=== PATIENT | female | born 1980 | race Hispanic/Latino ===

== ENCOUNTER 2019-08-08 15:39 | Outpatient (CLI) | payer OTHER ==
--- NOTE | 2019-08-09 09:19 | Ultrasound Report ---
TRANSABDOMINAL PELVIC AND TRANSVAGINAL ULTRASOUND HISTORY: DUB COMPARISON: None. TECHNIQUE: Routine transabdominal and transvaginal pelvic ultrasound performed. FINDINGS: TRANSABDOMINAL PELVIC ULTRASOUND: Uterus: Enlarged. The uterus is stretched by a distended urinary bladder and measures 15.1 x 4.9 x 7. 3 cm. No other measurable fibroids. Endometrium: Not imaged Right Ovary: Not well seen. . Left Ovary: Not well seen. Additional findings: Transvaginal exam was performed for better delineation of the endometrium and ov eliane. TRANSVAGINAL PELVIC ULTRASOUND: Uterus: Enlarged with heterogeneous myometrium consistent with diffuse small fibroids. An anterior fu ndal subserosal fibroid measures 1.2 cm. Endometrium: Normal thickness measuring 11.0 mm. Right Ovary: Normal with multiple small follicles. 4.7 x 2.4 x 4.8 cm. Left Ovary: Normal with multiple small follicles. 4.3 x 2.5 x 3.7 cm. Dominant follicle measures 1.4 cm. Additional findings: No mass or free fluid.. IMPRESSION: 1. Enlarged uterus with small uterine leiomyomata. 2. Normal endometrium and normal ovaries. Signer Name: Marck Moore MD Signed: 08/09/2019 9:14 AM Workstation Name: [id number]
== END 2019-08-08 15:40 | disposition home or self-care (01) ==
LOC: SPVWC 15:39
PROVIDERS: ATTEND Advanced Practice Midwife
DX: D25.2 Subserosal leiomyoma of uterus (principal)
CPT/HCPCS: 76830; 76856

== ENCOUNTER 2019-10-18 09:00 | Inpatient (IN) | payer OTHER ==
[2019-10-14 11:24] LABS: Basophils # (Auto) 0.1 K/mm3 (0.0-0.1); Basophils % (Auto) 0.8 % (0.0-1.8); Eosinophils # (Auto) 0.1 K/mm3 (0.0-0.4); Eosinophils % (Auto) 1.2 % (0.0-4.3); Hemoglobin 10.7 gm/dl (10.1-14.3); Lymphocytes # (Auto) 1.8 K/mm3 (1.2-5.4); Lymphocytes % (Auto) 27.4 % (13.4-35.0); Mean Corpuscular HGB Conc 32 % (30-34); Mean Corpuscular Volume 73 fl (79-97); Monocytes # (Auto) 0.5 K/mm3 (0.0-0.8); Monocytes % (Auto) 8.4 % (0.0-7.3); Platelet Count 252 K/mm3 (140-440); Red Blood Count 4.64 M/mm3 (3.65-5.03); Red Cell Distribution Width 21.9 % (13.2-15.2)
[2019-10-14 11:40] LABS: BUN/Creatinine Ratio 20; Blood Urea Nitrogen 10 mg/dL (7-17); Calcium 8.7 mg/dL (8.4-10.2); Hemolysis Index 8
--- NOTE | 2019-10-14 16:58 | Anesthesia Consultation ---
Anesthesia Consult and Med Hx Date of service: 10/14/19 - Airway Anesthetic Teeth Evaluation: Good ROM Head & Neck: Adequate Mental/Hyoid Distance: Adequate Mallampati Class: Class II Intubation Access Assessment: Good - Pulmonary Exam CTA: Yes - Cardiac Exam Cardiac Exam: RRR - Pre-Operative Health Status ASA Pre-Surgery Classification: ASA2 - Pulmonary Hx Smoking: Yes (1/2PPD; SINCE AGE 10; QUIT AT AGE 23 AND AGAIN 2 WKS AGO) Hx Sleep Apnea: Yes - Cardiovascular System Hx Hypertension: Yes (2014; ON/OFF MEDS;DIURECTIC ONLY CURRENTLY) - Central Nervous System Hx Psychiatric Problems: Yes - Hematic Hx Anemia: Yes (HGB 6.2 PUT ON FERRALET 90) - Other Systems Hx Alcohol Use: Yes (VERY RARE) Hx Substance Use: No Hx Obesity: Yes
[~2019-10-18 09:00] MED LIST: CELECOXIB 200 MG CAP PO NR; GABAPENTIN 300 MG CAP PO NR; LACTATED RINGERS 1,000 ML IV SCH; MIDAZOLAM 2 MG/2 ML INJ IV NR; fentaNYL 100 MCG/2 ML INJ IV SCH
--- NOTE | 2019-10-18 09:33 | Anesthesia Day of Surgery ---
Anesthesia Day of Surgery - Day of Surgery Patient Examined: Yes Patient H&P Reviewed: Yes Patient is NPO: Yes
[2019-10-18] MEDS ORDERED: BUPIVACAINE-EPINEPHRINE/PF 0.25%-1:200,000 (30 ML) VIAL INFILTRATI ONE (09:45)
[2019-10-18] MEDS ORDERED: dexAMETHasone 4 MG/ML VIAL ONE (09:45)
--- NOTE | 2019-10-18 09:45 | History and Physical Report ---
History of Present Illness Date of examination: 10/18/19 Date of admission: 10/18/19 09:00 Chief complaint: Menorrhagia History of present illness: Pt is a 39yo WF LMP 10/10/19 presents for surgical evaluation and treatment of menorrhagia and uterine fibroids. She complains of pelvic pain and heavy vaginal bleeding. Pelvic u/s showed the uterus 15.1 x 4.9 x 7.3cm with a small fundal fibroid. She desires ovarian conservation and now presents for a Total Abdominal Hysterectomy with Bilateral Salpingectomy. Past History Past Medical History: hypertension (on HCTZ), diabetes (on Metformin), other (PCOS; Depression) Past Surgical History: UPHOLSTERY BUNDLER/uterine surgery (Right salpingectomy for ectopic ), section (x3), D&C UPHOLSTERY BUNDLER History: abnormal PAP smear, fibroids Family/Genetic History: cancer Social history: no significant social history, Medications and Allergies Allergies Allergy/AdvReac Type Severity Reaction Status Date / Time adhesive Allergy Redness Verified 10/12/19 17:52 and Swelling Latex, Natural Rubber Allergy Redness Verified 10/12/19 17:52 and Swelling Home Medications Medication Instructions Recorded Confirmed Last Taken Type Cetirizine HCl [Zyrtec 10mg tab] 10 mg PO DAILY 10/12/19 10/12/19 Unknown History Ergocalciferol [Vitamin D2] 1 cap PO QWEEK 10/12/19 10/18/19 10/11/19 09:00 History Iron Carb,Gl/FA/B12/C/Docusate 1 each PO DAILY 10/12/19 10/12/19 Unknown History [Ferralet 90 Dual-Iron Tablet] Sertraline [Zoloft] 100 mg PO QDAY 10/12/19 10/18/19 10/17/19 08:00 History hydroCHLOROthiazide [HCTZ] 25 mg PO QDAY 10/12/19 10/18/19 10/17/19 08:00 History metFORMIN XR [Glucophage XR] 500 mg PO QDAY 10/12/19 10/18/19 10/17/19 08:00 History Active Meds: Active Medications Celecoxib (Celebrex) 200 mg PO PREOP NR Stop: 10/18/19 23:00 Fentanyl (Sublimaze) 100 mcg IV ONCE BELLE Stop: 10/18/19 23:00 Gabapentin (Gabapentin) 300 mg PO PREOP NR Stop: 10/18/19 23:00 Hydromorphone HCl (Dilaudid) 0.5 mg IV Q10MIN PRN PRN Reason: Pain , Severe (7-10) Stop: 10/18/19 16:00 Lactated Ringer's (Lactated Ringers) 1,000 mls @ 100 mls/hr IV DIRECT BELLE Midazolam HCl (Versed) 2 mg IV PREOP NR Stop: 10/18/19 23:00 Review of Systems All systems: negative - Vital Signs Vital signs: Vital Signs Temp Pulse Resp BP Pulse Ox 97.6 F 83 20 147/86 98 10/14/19 10:25 10/14/19 10:25 10/14/19 10:25 10/14/19 10:25 10/14/19 10:25 Temp Pulse Resp BP Pulse Ox 97.6 F 83 20 147/86 98 10/14/19 10:25 10/14/19 10:25 10/14/19 10:25 10/14/19 10:25 10/14/19 10:25 - Physical Exam Breasts: Positive: deferred Cardiovascular: Regular rate Lungs: Positive: Clear to auscultation Abdomen: Positive: normal appearance Genitourinary (Female): Positive: normal external genitalia Vagina: Positive: normal moisture Uterus: Positive: enlarged Extremities: Positive: normal Results Result Diagrams: 10/14/19 10:35 10/14/19 10:35 All other labs normal. Ultrasound: report reviewed Assessment and Plan - Patient Problems (1) Uterine fibroid Onset Date: 10/18/19 Current Visit: Yes Status: Acute Qualifiers: Uterine leiomyoma location: intramural and submucous Qualified Code(s): D25.1 - Intramural leiomyoma of uterus; D25.0 - Submucous leiomyoma of uterus Plan to address problem: A: Symptomatic uterine fibroids Menorrhagia P: Admit for a Total Abdominal Hysterectomy with Bilateral Salpingectomy (2) Menorrhagia with irregular cycle Onset Date: 10/18/19 Current Visit: Yes Status: Chronic
[2019-10-18] MEDS ORDERED: cloNIDine/PF 1,000 MCG/10 ML VIAL EP ONE (09:46)
[2019-10-18] MEDS ORDERED: HYDROmorphone 1 MG/1 ML INJ IV PRN (10:00)
[2019-10-18] MEDS ORDERED: LACTATED RINGERS 1,000 ML IV SCH (10:00)
[2019-10-18] MEDS ORDERED: fentaNYL 100 MCG/2 ML INJ IV ONE (10:02)
[2019-10-18] MEDS ORDERED: GABAPENTIN 300 MG CAP PO NR (11:00)
[2019-10-18] MEDS ORDERED: MIDAZOLAM 2 MG/2 ML INJ IV NR (11:00)
[2019-10-18] MEDS ORDERED: CELECOXIB 200 MG CAP PO NR (11:00)
[2019-10-18] MEDS ORDERED: METHYLENE BLUE 50 MG/10 ML AMP ONE (11:03)
[2019-10-18] MEDS ORDERED: PROPOFOL 200 MG/20 ML VIAL IV ONE (11:04)
[2019-10-18] MEDS ORDERED: HYDROmorphone 1 MG/1 ML INJ ONE (11:04)
[2019-10-18] MEDS ORDERED: LIDOCAINE MPF (2%) 20 MG/1 ML VIAL 5 ML ONE (11:05)
[2019-10-18] MEDS ORDERED: ROCURONIUM 50 MG/5 ML INJ IV ONE ×2 (11:06→12:02)
[2019-10-18] MEDS ORDERED: SODIUM CHLORIDE 0.9% IRR 1,000 ML BOTTLE IR ONE (11:20)
[2019-10-18] MEDS ORDERED: CITRIC ACID-SOD CITRATE 500 ML IV ONE (11:57)
[2019-10-18] MEDS ORDERED: KETOROLAC 30 MG/1 ML INJ ONE (12:00)
[2019-10-18] MEDS ORDERED: diphenhydrAMINE 50 MG/ML VIAL ONE (12:02)
[2019-10-18] MEDS ORDERED: LACTATED RINGERS 1,000 ML ONE (12:03)
[2019-10-18] MEDS ORDERED: dexAMETHasone 20 MG/5 ML VIAL ONE (12:04)
[2019-10-18] MEDS ORDERED: ONDANSETRON 4 MG/2 ML INJ ONE (12:05)
[2019-10-18] MEDS ORDERED: GLYCOPYRROLATE 0.4 MG/2 ML INJ ONE (13:09)
[2019-10-18] MEDS ORDERED: NEOSTIGMINE 10MG/10 ML INJ MDV ONE (13:09)
--- NOTE | 2019-10-18 13:31 | Operative Report ---
Operative Report Operative Report: Date of procedure: 10/18/2019 Pre-operative diagnosis: 1. Symptomatic uterine fibroids 2. Menorrhagia Post-operative diagnosis: Same with Extensive lower uterine segment adhesions and bowel adhesions Procedure name(s): 1. Total abdominal hysterectomy 2. Left salpingectomy 3. Lysis of extensive adhesions. Surgeon: Francesco Allan MD Commercial Assistant: Jaclyn Khoury CSA Anesthesia: KENNEDY Block followed by general endotracheal intubation EBL: 200 mL's Findings: A 14 -16 week size uterus with a small fibroid. Extensive lower uterine segment adhesions and bowel adhesions. Normal ovaries bilaterally. Absent right fallopian tube, and normal left fallopian tube. Procedure: After the patient was first correctly identified and after KENNEDY block and general anesthesia was administered she was prepped and draped in usual in the usual sterile fashion and placed in the dorsolithotomy position. The skin knife was used to make a transverse skin incision through the previous skin scars. The incision was extended down to the layer of the fascia which was nicked in the midline and extended laterally using Bovie cautery. The rectus muscles were dissected off the rectus fascia both superiorly and inferiorly, the rectus bellies in the midline and the peritoneum was entered under direct visualization. Exploration of the pelvic organs found the uterus to be enlarged with extensive lower uterine segment adhesions and omental adhesions to the anterior abdominal wall. The right fallopian tube was absent, and the left fallopian tube was normal. The ovaries were normal bilaterally. Next the bowels were packed back and the round ligaments were grasped, cauterized and cut using the Enseal device. The utero-ovarian ligament was clamped, cauterized and cut, thus freeing the right ovary from the right uterine sidewall. The same procedure was performed on the left. The left round ligament was clamped, cauterized and cut using the Enseal device, and the left utero-ovarian ligament was clamped, cauterized and cut thus freeing the left ovary and the left fallopian tube from the left uterine sidewall. The uterine vessels were then skeletonized bilaterally, and the bladder flap was taken down anteriorly. There was extensive lower uterine segment adhesions which were taken down using both sharp and blunt dissections. The uterine vessels were then doubly clamped cut and suture ligated bilaterally, and the cardinal ligaments were sequentially clamped cut and suture ligated down to the level of the uterosacral ligaments. The cervix was then amputated from the vaginal cuff and the specimen was handed off the surgical field. The vaginal cuff was then made hemostatic using several sutures of 0 Vicryl suture in a [id number] configuration. After excellent hemostasis was assured copious amounts of irrigation was then performed. The Tisseel sealant was then sprayed across the vaginal cuff and the superior pedicles bilaterally and after excellent hemostasis was assured the procedure was considered complete. All instruments were removed from the abdomen, and the peritoneum was closed using 0 Vicryl suture in a running interlocking fashion and the rectus muscles were also loosely re-approximated using 0 Vicryl suture in a [id number] configuration. The fascia was then re-approximated using #1 Vicryl suture in a running interlocking fashion, the subcutaneous layer made hemostatic using Bovie cautery and the skin edges re-approximated using 4-0 Vicryl suture in a sub-cuticular fashion. Patient tolerated the procedure well was transported to recovery room in stable condition.
[2019-10-18] MEDS ORDERED: MAGNESIUM HYDROXIDE (MOM) ORAL LIQD UDC PO PRN (13:32)
[2019-10-18] MEDS ORDERED: PROMETHAZINE 25 MG RECT SUPP PR PRN (13:32)
[2019-10-18] MEDS ORDERED: ONDANSETRON 4 MG/2 ML INJ IV PRN (13:32)
[2019-10-18] MEDS ORDERED: HYDROcodone/ACETAMINOPHEN 5-325 MG TAB PO PRN (13:32)
[2019-10-18] MEDS ORDERED: DEXTROSE 50% IN WATER (25GM) 50 ML SYRINGE IV PRN (13:32)
[2019-10-18] MEDS ORDERED: ACETAMINOPHEN 325 MG TAB PO PRN (13:32)
[2019-10-18] MEDS ORDERED: D5W/LACTATED RINGERS 1,000 ML IV SCH (14:00)
--- NOTE | 2019-10-18 15:30 | Post Anesthesia Evaluation ---
- Post Anesthesia Evaluation Patient Participated: Yes Airway Patent: Yes Stable Respiratory Function: Yes Nausea/Vomiting: No Temp > 96.8F: Yes Pain Manageable: Yes Adequeate Hydration: Yes Anesthesia Complications: No
[2019-10-18] MEDS: oxyCODONE /ACETAMINOPHEN 5-325MG TAB PO PRN (17:28)
[2019-10-18] MEDS ORDERED: PHENOL 1.4% 177 ML BOTTLE MM PRN (20:23)
[2019-10-18] MEDS: DOCUSATE SODIUM 100 MG CAP PO SCH (21:21)
[2019-10-18] MEDS: KETOROLAC 30 MG/1 ML INJ IV SCH (21:21)
[2019-10-18] MEDS: ceFAZolin/NS 1 GM/50 ML 1 GM/50 ML BAG IV SCH (21:54)
[2019-10-18] MEDS: INSULIN REGULAR, HUMAN 100 UNITS/1 ML SUB-Q SCH (21:54)
[2019-10-18] MEDS: AZITHROMYCIN 250 MG TAB PO SCH (21:55)
[2019-10-19] MEDS: KETOROLAC 30 MG/1 ML INJ IV SCH ×3 (05:08→20:45)
[2019-10-19] MEDS: ceFAZolin/NS 1 GM/50 ML 1 GM/50 ML BAG IV SCH (05:09)
[2019-10-19 05:19] LABS: Hemoglobin 7.1 gm/dl (10.1-14.3)
[2019-10-19 05:56] LABS: BUN/Creatinine Ratio 25; Blood Urea Nitrogen 15 mg/dL (7-17); Calcium 7.9 mg/dL (8.4-10.2); Hemolysis Index 5
[2019-10-19] MEDS: oxyCODONE /ACETAMINOPHEN 5-325MG TAB PO PRN ×2 (07:21→18:20)
--- NOTE | 2019-10-19 08:26 | Progress Note ---
Assessment and Plan - Patient Problems (1) Uterine fibroid Onset Date: 10/18/19 Current Visit: Yes Status: Resolved Qualifiers: Uterine leiomyoma location: intramural and submucous Qualified Code(s): D25.1 - Intramural leiomyoma of uterus; D25.0 - Submucous leiomyoma of uterus (2) Menorrhagia with irregular cycle Onset Date: 10/18/19 Current Visit: Yes Status: Resolved (3) Status post total abdominal hysterectomy Onset Date: 10/19/19 Current Visit: Yes Status: Resolved Plan to address problem: A: S/P KEMAL with Left salpingectomy - POD #1 Doing well Asymptomatic anemia - stable P: Continue RPOC Anticipate discharge in 24-48hrs (4) Acute blood loss anemia Onset Date: 10/19/19 Current Visit: Yes Status: Resolved Subjective - Subjective Date of service: 10/19/19 Principal diagnosis: s/p KEMAL - POD #1 Interval history: Pt is s/p a Total Abdominal Hysterectomy with Left Salpingectomy, and doing well. She is tolerating a liquid diet without nausea or vomiting. Patient reports: appetite normal, voiding normally, pain well controlled, ambulating normally, no dizzy ambulation, no flatus, no nauseated Objective - Vital Signs Latest vital signs: Vital Signs Temp Pulse Pulse Resp BP BP Pulse Ox 10/19/19 07:21 18 10/19/19 04:17 110/64 10/19/19 00:40 98.3 F 83 18 100/52 97 10/18/19 20:28 97.3 F L 89 18 102/52 96 10/18/19 20:00 60 16 10/18/19 16:30 97.5 F L 93 H 20 91/52 10/18/19 14:45 98.5 F 96 H 20 114/79 97 10/18/19 14:14 16 10/18/19 14:09 98.4 F 88 16 132/74 97 10/18/19 13:54 91 H 14 130/76 97 10/18/19 13:49 99 H 17 123/74 100 10/18/19 13:44 93 H 19 134/73 100 10/18/19 13:39 98.7 F 86 18 131/65 100 10/18/19 11:33 18 10/18/19 10:50 80 22 116/54 98 10/18/19 10:45 20 131/62 98 10/18/19 10:40 85 15 124/71 98 10/18/19 10:35 71 15 149/86 99 10/18/19 10:33 18 10/18/19 10:30 76 13 150/79 100 10/18/19 10:20 18 10/18/19 09:09 97.6 F 83 20 147/86 98 Intake and Output 10/18/19 10/19/19 10/19/19 22:59 06:59 14:59 Intake Total 140 Output Total 400 600 Balance -260 -600 Intake: IV 50 ANCEF/NS 1 GM/50 ML 1 gm 50 In 50 ml @ 100 mls/hr IV Q8H [facility] Rx#:[id number] Oral 90 Output: Urine 400 600 Indwelling Catheter 400 600 Other: Total, Intake Amount 90 Total, Output Amount 400 200 Voiding Method Indwelling Catheter # Voids Indwelling Catheter 3 - Exam Breasts: Present: deferred Abdomen: Present: normal appearance, soft Extremities: Present: normal Incision: Present: normal, dry, intact - Labs Labs: Abnormal lab results 10/18/19 10/18/19 10/19/19 Range/Units 16:58 21:56 04:51 Hgb 7.1 L (10.1-14.3) gm/dl Hct 23.0 L (30.3-42.9) % Sodium (137-145) mmol/L Creatinine (0.7-1.2) mg/dL Glucose (65-100) mg/dL POC Glucose 203 H 204 H (70-105) Calcium (8.4-10.2) mg/dL 10/19/19 Range/Units 04:51 Hgb (10.1-14.3) gm/dl Hct (30.3-42.9) % Sodium 136 L (137-145) mmol/L Creatinine 0.6 L (0.7-1.2) mg/dL Glucose 146 H (65-100) mg/dL POC Glucose (70-105) Calcium 7.9 L (8.4-10.2) mg/dL Laboratory Tests 10/14/19 10/14/19 10/14/19 10:35 10:35 10:35 WBC 6.5 RBC 4.64 Hgb 10.7 Hct 34.0 MCV 73 L MCH 23 L MCHC 32 RDW 21.9 H Plt Count 252 Lymph % (Auto) 27.4 [place] % (Auto) 8.4 H Eos % (Auto) 1.2 Baso % (Auto) 0.8 Lymph # 1.8 [place] # 0.5 Eos # 0.1 Baso # 0.1 Seg Neutrophils % 62.2 Seg Neutrophils # 4.0 Sodium 138 Potassium 3.8 Chloride 102.0 Carbon Dioxide 22 Anion Gap 18 BUN 10 Creatinine 0.5 L Estimated GFR > 60 BUN/Creatinine Ratio 20 Glucose 88 POC Glucose Calcium 8.7 HCG, Qual Negative Blood Type Antibody Screen 10/18/19 10/18/19 10/18/19 10:06 16:58 21:56 WBC RBC Hgb Hct MCV MCH MCHC RDW Plt Count Lymph % (Auto) [place] % (Auto) Eos % (Auto) Baso % (Auto) Lymph # [place] # Eos # Baso # Seg Neutrophils % Seg Neutrophils # Sodium Potassium Chloride Carbon Dioxide Anion Gap BUN Creatinine Estimated GFR BUN/Creatinine Ratio Glucose POC Glucose 203 H 204 H Calcium HCG, Qual Blood Type A POSITIVE Antibody Screen Negative 10/19/19 10/19/19 04:51 04:51 WBC RBC Hgb 7.1 L Hct 23.0 L MCV MCH MCHC RDW Plt Count Lymph % (Auto) [place] % (Auto) Eos % (Auto) Baso % (Auto) Lymph # [place] # Eos # Baso # Seg Neutrophils % Seg Neutrophils # Sodium 136 L Potassium 4.2 Chloride 99.6 Carbon Dioxide 23 Anion Gap 18 BUN 15 Creatinine 0.6 L Estimated GFR > 60 BUN/Creatinine Ratio 25 Glucose 146 H POC Glucose Calcium 7.9 L HCG, Qual Blood Type Antibody Screen
[2019-10-19] MEDS ORDERED: hydroCHLOROthiazide 25 MG TAB PO SCH (10:00)
[2019-10-19] MEDS: INSULIN REGULAR, HUMAN 100 UNITS/1 ML SUB-Q SCH ×3 (12:02→21:46)
[2019-10-19] MEDS: metFORMIN 500 MG TAB PO SCH ×2 (12:03→18:19)
[2019-10-19] MEDS: DOCUSATE SODIUM 100 MG CAP PO SCH ×2 (12:04→21:33)
--- NOTE | 2019-10-19 15:57 | Discharge Summary ---
Providers - Providers Date of Admission: 10/18/19 09:00 Date of discharge: 10/20/19 Attending physician: LOLLY FORD Primary care physician: DINESH ROSALES [facility] Reason for admission: other (Symptomatic uterine fibroids; Menorrhagia) Procedure: other (KEMAL with Left salpingectomy) Episiotomy: none Laceration: none Incision: normal, dry, intact Other procedures: none complications: none Discharge diagnosis: other (s/p KEMAL) Hospital course: Pt is a 39yo WF LMP 10/10/19 who presented for surgical evaluation and treatment of menorrhagia and uterine fibroids. She complained of pelvic pain and heavy prolonged vaginal bleeding. Pelvic u/s showed the uterus 15.1 x 4.9 x 7.3cm with a small fundal fibroid. She underwent an uncomplicated Total Abdominal Hysterectomy with Left Salpingectomy, and post operative course was uneventful. By POD #1 she was tolerating a reg diet without nausea or vomiting, ambulating and voiding without difficulty. She will therefore be discharged to home tomorrow if she remains in stable condition. She will follow up with me in the office in 2 weeks. Condition at discharge: Good Disposition: DC-01 TO HOME OR SELFCARE - Discharge Diagnoses (1) Uterine fibroid Status: Resolved Qualifiers: Uterine leiomyoma location: intramural and submucous Qualified Code(s): D25.1 - Intramural leiomyoma of uterus; D25.0 - Submucous leiomyoma of uterus (2) Menorrhagia with irregular cycle Status: Resolved (3) Status post total abdominal hysterectomy Status: Resolved (4) Acute blood loss anemia Status: Resolved Plan - Discharge Medications Prescriptions: Ferrous Sulfate [Feosol 325 MG tab] 325 mg PO BID #60 tablet Ibuprofen [Motrin] 800 mg PO Q8HR PRN #30 tablet PRN Reason: Pain, Mild (1-3) oxyCODONE /ACETAMINOPHEN [Percocet 5/325 mg] 1 tab PO Q6H PRN #30 tablet PRN Reason: Pain, Moderate (4-6) Azithromycin [Zithromax TAB] 250 mg PO QDAY #5 tablet - Provider Discharge Summary Activity: routine, no sex for 6 weeks, no heavy lifting 4 weeks, no strenuous exercise Diet: routine Instructions: routine Additional instructions: [] Smoking cessation referral if applicable(refer to patient education folder for contact #) [] Refer to [employer] Booklet Call your doctor immediately for: * Fever > 100.5 * Heavy vaginal bleeding ( >1 pad per hour) * Severe persistent headache * Shortness of breath * Reddened, hot, painful area to leg or breast * Drainage or odor from incision. * Keep incision clean and dry at all times and follow doctor's instructions regarding bathing/showering - Follow up plan Follow up: DINESH COOPER [Primary Care Provider] - 14 Days LOLLY FORD MD [Staff Physician] - 14 Days
[2019-10-19] MEDS: SERTRALINE 100 MG TAB PO SCH (18:19)
[2019-10-19] MEDS: AZITHROMYCIN 250 MG TAB PO SCH (18:19)
[2019-10-20] MEDS: oxyCODONE /ACETAMINOPHEN 5-325MG TAB PO PRN ×2 (01:05→10:15)
[2019-10-20] MEDS: KETOROLAC 30 MG/1 ML INJ IV SCH (03:01)
[2019-10-20] MEDS: INSULIN REGULAR, HUMAN 100 UNITS/1 ML SUB-Q SCH (08:00)
[2019-10-20 08:44] VITALS: BP 103/51
[2019-10-20] MEDS: metFORMIN 500 MG TAB PO SCH (10:15)
[2019-10-20] MEDS: AZITHROMYCIN 250 MG TAB PO SCH (10:15)
[2019-10-20] MEDS: DOCUSATE SODIUM 100 MG CAP PO SCH (10:15)
[2019-10-20] MEDS: SERTRALINE 100 MG TAB PO SCH (10:15)
== END 2019-10-20 10:55 | disposition home or self-care (01) | DRG 742 ==
LOC: 3A 09:00 → OB 14:18
PROVIDERS: ADMIT Obstetrics & Gynecology; ATTEND Obstetrics & Gynecology
PROC: 0UT90ZZ Resection of Uterus, Open Approach (ICD-10-PCS; principal; 2019-10-18)
PROC: 0DNU0ZZ Release Omentum, Open Approach (ICD-10-PCS; 2019-10-18)
PROC: 0DNW0ZZ Release Peritoneum, Open Approach (ICD-10-PCS; 2019-10-18)
PROC: 0UT60ZZ Resection of Left Fallopian Tube, Open Approach (ICD-10-PCS; 2019-10-18)
DX: D25.1 Intramural leiomyoma of uterus (principal); Z68.42 Body mass index [BMI] 45.0-49.9, adult; D62 Acute posthemorrhagic anemia; D25.0 Submucous leiomyoma of uterus; N92.0 Excessive and frequent menstruation with regular cycle; F17.210 Nicotine dependence, cigarettes, uncomplicated; I10 Essential (primary) hypertension; E66.9 Obesity, unspecified; E11.9 Type 2 diabetes mellitus without complications; F32.9 Major depressive disorder, single episode, unspecified; Z88.8 Allergy status to other drugs, medicaments and biological substances; Z80.9 Family history of malignant neoplasm, unspecified; Z91.040 Latex allergy status; Z79.84 Long term (current) use of oral hypoglycemic drugs
CPT/HCPCS: 36415; 64450; 80048; 82962; 84703; 85014; 85018; 85025; 86850; 86900; 86901; 88307; 88341; 88342; G0378; C9250; J0690; J0735; J1100; J1170; J1200; J1815; J1885; J2250; J2405; J2704; J2710; J3010; J7120; J7121; Q9968

== ENCOUNTER 2019-10-23 23:09 | Emergency (ER) | payer OTHER ==
[2019-10-24 00:15] LABS: Hematocrit 25.3 % (30.3-42.9); Hemoglobin 7.9 gm/dl (10.1-14.3); Mean Corpuscular HGB Conc 31 % (30-34); Mean Corpuscular Volume 75 fl (79-97); Platelet Count 338 K/mm3 (140-440); Red Blood Count 3.36 M/mm3 (3.65-5.03)
--- NOTE | 2019-10-24 00:21 | XRay Report ---
CHEST 2 VIEWS INDICATION / CLINICAL INFORMATION: Shortness of Breath. COMPARISON: None available. FINDINGS: SUPPORT DEVICES: None. HEART / MEDIASTINUM: No significant abnormality. LUNGS / PLEURA: Linear atelectatic type opacities present within both lower lungs. Low lung volumes n oted bilaterally. Signer Name: J Carlos Stark MD Signed: 10/24/2019 12:17 AM Workstation Name: [email or web address]
[2019-10-24 00:23] LABS: Red Cell Distribution Width 21.3 % (13.2-15.2)
[2019-10-24 00:26] LABS: INR 0.93 (0.87-1.13)
[2019-10-24 00:27] LABS: Partial Thromboplastin Time 26.1 Sec. (24.2-36.6)
[2019-10-24 00:31] LABS: BUN/Creatinine Ratio 15; Blood Urea Nitrogen 9 mg/dL (7-17); Hemolysis Index 0
--- NOTE | 2019-10-24 01:01 | Emergency Department Report ---
ED Shortness of Breath HPI - General Chief Complaint: Dyspnea/Respdistress Stated Complaint: BLEEDING, SOB Time Seen by Provider: 10/23/19 23:48 Source: patient, family Mode of arrival: Wheelchair Limitations: No Limitations - History of Present Illness Initial Comments: Patient is a 39-year-old female who is presenting status post a abdominal hysterectomy. Patient states she's been short of breath since the surgery. Patient states that she had to walk up some stairs earlier today and felt dizzy and has some increased shortness of breath. Her shortness of breath is worsened over the last several days. Patient feels as though there is no weight on her chest. Patient feels as though her lungs being squeezed. She states that she has some swelling and and chills earlier today but she denies productive cough. Patient had her hysterectomy on 10/18/2019 was discharged on 10/20/2019. Patient states before surgery she had no shortness of breath. Patient did have some sinus discomfort and was given a Z-Bryan. - Related Data Home Medications Medication Instructions Recorded Confirmed Last Taken Cetirizine HCl [Zyrtec 10mg tab] 10 mg PO DAILY 10/12/19 10/12/19 Unknown Ergocalciferol [Vitamin D2] 1 cap PO QWEEK 10/12/19 10/18/19 10/11/19 09:00 Iron Carb,Gl/FA/B12/C/Docusate 1 each PO DAILY 10/12/19 10/12/19 Unknown [Ferralet 90 Dual-Iron Tablet] Sertraline [Zoloft] 100 mg PO QDAY 10/12/19 10/18/19 10/17/19 08:00 hydroCHLOROthiazide [HCTZ] 25 mg PO QDAY 10/12/19 10/18/19 10/17/19 08:00 metFORMIN XR [Glucophage XR] 500 mg PO QDAY 10/12/19 10/18/19 10/17/19 08:00 Previous Rx's Medication Instructions Recorded Last Taken Type Azithromycin [Zithromax TAB] 250 mg PO QDAY #5 tablet 10/19/19 Unknown Rx Ferrous Sulfate [Feosol 325 MG tab] 325 mg PO BID #60 tablet 10/19/19 Unknown Rx Ibuprofen [Motrin] 800 mg PO Q8HR PRN #30 tablet 10/19/19 Unknown Rx oxyCODONE /ACETAMINOPHEN [Percocet 1 tab PO Q6H PRN #30 tablet 10/19/19 Unknown Rx 5/325 mg] ALBUTEROL Inhaler (OR & NICU) 2 puff IH QID PRN #1 inhalation 10/24/19 Unknown Rx [ProAir HFA Inhaler] Allergies Allergy/AdvReac Type Severity Reaction Status Date / Time adhesive Allergy Redness Verified 10/12/19 17:52 and Swelling Latex, Natural Rubber Allergy Redness Verified 10/12/19 17:52 and Swelling ED Review of Systems ROS: Stated complaint: BLEEDING, SOB Other details as noted in HPI Comment: All other systems reviewed and negative ED Past Medical Hx - Past Medical History Previous Medical History?: Yes Hx Hypertension: Yes (2014; ON/OFF MEDS;DIURECTIC ONLY CURRENTLY) Hx Congestive Heart Failure: No Hx Diabetes: No Hx GERD: Yes (OTC MEDS) Hx Headaches / Migraines: Yes Hx Asthma: No Hx COPD: No Hx HIV: No - Surgical History Past Surgical History?: Yes Additional Surgical History: Total Abdominal Hystrectomy 10/18 d/c'd 10/20 - Social History Smoking Status: Never Smoker - Medications Home Medications: Home Medications Medication Instructions Recorded Confirmed Last Taken Type Cetirizine HCl [Zyrtec 10mg tab] 10 mg PO DAILY 10/12/19 10/12/19 Unknown History Ergocalciferol [Vitamin D2] 1 cap PO QWEEK 10/12/19 10/18/19 10/11/19 09:00 History Iron Carb,Gl/FA/B12/C/Docusate 1 each PO DAILY 10/12/19 10/12/19 Unknown History [Ferralet 90 Dual-Iron Tablet] Sertraline [Zoloft] 100 mg PO QDAY 10/12/19 10/18/19 10/17/19 08:00 History hydroCHLOROthiazide [HCTZ] 25 mg PO QDAY 10/12/19 10/18/19 10/17/19 08:00 History metFORMIN XR [Glucophage XR] 500 mg PO QDAY 10/12/19 10/18/19 10/17/19 08:00 History Azithromycin [Zithromax TAB] 250 mg PO QDAY #5 tablet 10/19/19 Unknown Rx Ferrous Sulfate [Feosol 325 MG tab] 325 mg PO BID #60 tablet 10/19/19 Unknown Rx Ibuprofen [Motrin] 800 mg PO Q8HR PRN #30 tablet 10/19/19 Unknown Rx oxyCODONE /ACETAMINOPHEN [Percocet 1 tab PO Q6H PRN #30 tablet 10/19/19 Unknown Rx 5/325 mg] ALBUTEROL Inhaler (OR & NICU) 2 puff IH QID PRN #1 inhalation 10/24/19 Unknown Rx [ProAir HFA Inhaler] ED Physical Exam - General Limitations: No Limitations General appearance: alert, in no apparent distress - Head Head exam: Present: atraumatic, normocephalic - Eye Eye exam: Present: normal appearance, PERRL, EOMI - ENT ENT exam: Present: mucous membranes moist - Neck Neck exam: Present: normal inspection - Respiratory Respiratory exam: Present: normal lung sounds bilaterally. Absent: respiratory distress, wheezes, rales, rhonchi - Cardiovascular Cardiovascular Exam: Present: regular rate, normal rhythm, normal heart sounds. Absent: systolic murmur, diastolic murmur, rubs, gallop - GI/Abdominal GI/Abdominal exam: Present: soft, tenderness (mild tenderness along her lower abdominal wound. Patient has a mild amount of blood surrounding the wound however there is no firmness erythema or active bleeding at this time.), normal bowel sounds, other (he has an abdominal binder in place.). Absent: distended, guarding, rebound - Extremities Exam Extremities exam: Present: normal inspection - Back Exam Back exam: Present: normal inspection - Neurological Exam Neurological exam: Present: alert, oriented X3 - Psychiatric Psychiatric exam: Present: normal affect, normal mood - Skin Skin exam: Present: warm, dry, intact, normal color. Absent: rash ED Course Vital Signs 10/23/19 10/23/19 10/24/19 23:15 23:25 00:02 Temperature 98.6 F 98.6 F Pulse Rate 105 H 103 H 87 Respiratory 18 18 12 Rate Blood Pressure 152/89 152/89 Blood Pressure [Right] O2 Sat by Pulse 97 98 Oximetry 10/24/19 10/24/19 10/24/19 00:05 00:15 00:31 Temperature 98 F Pulse Rate 89 85 83 Respiratory 19 22 19 Rate Blood Pressure 131/78 Blood Pressure 123/68 [Right] O2 Sat by Pulse 100 97 96 Oximetry 10/24/19 10/24/19 10/24/19 00:45 01:17 01:41 Temperature Pulse Rate 83 84 Respiratory 26 H 22 Rate Blood Pressure Blood Pressure [Right] O2 Sat by Pulse 95 98 97 Oximetry - Reevaluation(s) Reevaluation #1: 10/24/19 01:00 Patient's chest x-ray shows probable atelectasis in bilateral. I will ex is likely secondary to patient wearing a binder for her abdominal wound. Patient did have elevated d-dimer CTA will be ordered. ED Medical Decision Making - Lab Data Result diagrams: 10/23/19 23:59 10/23/19 23:59 Lab Results 10/23/19 10/23/19 10/23/19 Range/Units 23:59 23:59 23:59 WBC 10.9 (4.5-11.0) K/mm3 RBC 3.36 L (3.65-5.03) M/mm3 Hgb 7.9 L (10.1-14.3) gm/dl Hct 25.3 L (30.3-42.9) % MCV 75 L (79-97) fl MCH 24 L (28-32) pg MCHC 31 (30-34) % RDW 21.3 H (13.2-15.2) % Plt Count 338 (140-440) K/mm3 PT 12.4 (12.2-14.9) Sec. INR 0.93 (0.87-1.13) APTT 26.1 (24.2-36.6) Sec. D-Dimer 1721.16 H (0-234) ng/mlDDU Sodium 134 L (137-145) mmol/L Potassium 4.0 (3.6-5.0) mmol/L Chloride 97.7 L (98-107) mmol/L Carbon Dioxide 25 (22-30) mmol/L Anion Gap 15 mmol/L BUN 9 (7-17) mg/dL Creatinine 0.6 L (0.7-1.2) mg/dL Estimated GFR > 60 ml/min BUN/Creatinine Ratio 15 % Glucose 160 H (65-100) mg/dL Calcium 9.0 (8.4-10.2) mg/dL Troponin T (0.00-0.029) ng/mL 10/23/19 Range/Units 23:59 WBC (4.5-11.0) K/mm3 RBC (3.65-5.03) M/mm3 Hgb (10.1-14.3) gm/dl Hct (30.3-42.9) % MCV (79-97) fl MCH (28-32) pg MCHC (30-34) % RDW (13.2-15.2) % Plt Count (140-440) K/mm3 PT (12.2-14.9) Sec. INR (0.87-1.13) APTT (24.2-36.6) Sec. D-Dimer (0-234) ng/mlDDU Sodium (137-145) mmol/L Potassium (3.6-5.0) mmol/L Chloride (98-107) mmol/L Carbon Dioxide (22-30) mmol/L Anion Gap mmol/L BUN (7-17) mg/dL Creatinine (0.7-1.2) mg/dL Estimated GFR ml/min BUN/Creatinine Ratio % Glucose (65-100) mg/dL Calcium (8.4-10.2) mg/dL Troponin T < 0.010 (0.00-0.029) ng/mL - Radiology Data CHEST 2 VIEWS INDICATION / CLINICAL INFORMATION: Shortness of Breath. COMPARISON: None available. FINDINGS: SUPPORT DEVICES: None. HEART / MEDIASTINUM: No significant abnormality. LUNGS / PLEURA: Linear atelectatic type opacities present within both lower lungs. Low lung volumes noted bilaterally. Signer Name: J Carlos Stark MD CTA CHEST WITH IV CONTRAST INDICATION: Acute onset chest pain with dyspnea. TECHNIQUE: Axial CT images were obtained through the chest after injection of 100 mL IV contrast. 3 plane MIP reconstructions were produced. All CT scans at this location are performed using CT dose reduction for ALARA by means of automated exposure control. COMPARISON: None available. FINDINGS: PULMONARY ARTERIES: No pulmonary emboli. AORTA AND ARTERIES: No acute abnormality. MEDIASTINUM: No mass, lymphadenopathy or other significant abnormality. The heart is normal in size without a pericardial effusion. The trachea and main bronchi are patent and normal in caliber. LUNGS: No suspicious consolidation, nodule or mass. No pneumothorax or pleural effusion. ADDITIONAL FINDINGS: None. UPPER ABDOMEN: No acute findings. BONES: No significant osseous abnormality. IMPRESSION: 1. No CT evidence for pulmonary embolism. 2. No acute findings. Signer Name: J Carlos Stark MD Signed: 10/24/2019 1:48 AM Workstation Name: [id number] - Medical Decision Making Since CTA shows no evidence of pneumonia or pulmonary embolus. Patient with atelectasis secondary to the binder that she has when her abdomen after her surgery. Patient is encouraged to use an incentive spirometer 6 times daily. Patient also be given albuterol inhaler patient be discharged home. Critical care attestation.: If time is entered above; I have spent that time in minutes in the direct care of this critically ill patient, excluding procedure time. ED Disposition Clinical Impression: Atelectasis of both lungs, Wound dehiscence Disposition: DC-01 TO HOME OR SELFCARE Is pt being admited?: No Does the pt Need Aspirin: No Condition: Stable Additional Instructions: Please use your incentive spirometer at least 6 times daily Referrals: LOLLY FORD MD [Primary Care Provider] - 3-5 Days Time of Disposition: 02:44
[2019-10-24 01:16] LABS: Bilirubin,Urine NEG (Negative); Blood,Urine NEG (Negative); Color,Urine Yellow (Yellow); Protein,Urine <15 mg/dL mg/dL (Negative); Urobilinogen,Urine < 2.0 mg/dL (<2.0)
--- NOTE | 2019-10-24 01:52 | Cat Scan Report ---
CTA CHEST WITH IV CONTRAST INDICATION: Acute onset chest pain with dyspnea. TECHNIQUE: Axial CT images were obtained through the chest after injection of 100 mL IV contrast. 3 plane MIP re constructions were produced. All CT scans at this location are performed using CT dose reduction for ALARA by means of automated exposure control. COMPARISON: None available. FINDINGS: PULMONARY ARTERIES: No pulmonary emboli. AORTA AND ARTERIES: No acute abnormality. MEDIASTINUM: No mass, lymphadenopathy or other significant abnormality. The heart is normal in size w ithout a pericardial effusion. The trachea and main bronchi are patent and normal in caliber. LUNGS: No suspicious consolidation, nodule or mass. No pneumothorax or pleural effusion. ADDITIONAL FINDINGS: None. UPPER ABDOMEN: No acute findings. BONES: No significant osseous abnormality. IMPRESSION: 1. No CT evidence for pulmonary embolism. 2. No acute findings. Signer Name: J Carlos Stark MD Signed: 10/24/2019 1:48 AM Workstation Name: [id number]
[2019-10-24 03:09] VITALS: BP 118/47
== END 2019-10-24 03:11 | disposition home or self-care (01) ==
LOC: ED 23:09
DX: T81.30XA Disruption of wound, unspecified, initial encounter (principal); J98.11 Atelectasis; I10 Essential (primary) hypertension; K21.9 Gastro-esophageal reflux disease without esophagitis; G43.909 Migraine, unspecified, not intractable, without status migrainosus; Z90.710 Acquired absence of both cervix and uterus; Z79.899 Other long term (current) drug therapy; Z91.048 Other nonmedicinal substance allergy status; Z91.040 Latex allergy status; Z88.8 Allergy status to other drugs, medicaments and biological substances; X58.XXXA Exposure to other specified factors, initial encounter; Y93.89 Activity, other specified; Y92.89 Other specified places as the place of occurrence of the external cause; Y99.8 Other external cause status
CPT/HCPCS: 36415; 71046; 71275; 80048; 81001; 84484; 85027; 85379; 85610; 85730; 93005; 93010; 99284; Q9967

== ENCOUNTER 2020-08-07 14:25 | Outpatient (CLI) | payer OTHER ==
--- NOTE | 2020-08-08 09:57 | Mammography Report ---
BILATERAL DIGITAL SCREENING MAMMOGRAM WITH CAD HISTORY: SCREENING MAMMOGRAM TECHNIQUE: Routine digital mammographic imaging performed. This examination was interpreted with nohemi buckley benefit of Computer-aided Detection analysis. COMPARISON: None available. FINDINGS: Breast Density: scattered fibroglandular appearance of the breast tissue. Digital CC and MLO views demonstrate no mammographic evidence of malignancy. IMPRESSION: No mammographic evidence of malignancy. If the clinical examination remains stable, recommend bilate ral mammogram in approximately one year. BIRADS 1: Negative. FURTHER INFORMATION: According to the [employer], yearly mammograms are recommend ed starting at age 40 and continuing as long as a woman is in good health. Clinical Breast Exams shou ld be part of a periodic health exam-about every 3 years for women in their 20s and 30s and every yea r for women 40 and over. Breast self exam is an option for women starting in their 20s. Any breast ch ailyn noted on a breast self exam should be reported promptly to the patient's healthcare provider. Br east MRI is recommended for women with an approximately 20-25% or greater lifetime risk of breast can cer, including women with a strong family history of breast or ovarian cancer and women who have been treated for Hodgkin's disease. A negative Mammography report should not discourage follow up or biopsy of a clinically significant f inding and/or abnormality. Dense breast tissue may obscure small neoplasms. The patient will be entered into a reminder system with a target due date for the next screening mamm ogram. Signer Name: Segundo Hamilton MD Signed: 08/08/2020 9:53 AM Workstation Name: [id number]
== END 2020-08-07 14:26 | disposition home or self-care (01) ==
LOC: SPVWC 14:25
PROVIDERS: ATTEND Obstetrics & Gynecology
DX: Z12.31 Encounter for screening mammogram for malignant neoplasm of breast (principal)
CPT/HCPCS: 77067